=== PATIENT | male | born 1980 | race Caucasian/White ===

== ENCOUNTER 2022-08-30 17:40 | Inpatient (IN) | payer MEDICAID ==
[~2022-08-30] VITALS: Ht 175.3 cm; Wt 67.6 kg
[2022-08-30 22:02] LABS: BASOPHILS % (AUTO) 0.8 % (0.0-2.0); EOSINOPHILS % (AUTO) 4.5 % (1.0-6.0); HEMATOCRIT 40.5 % (41-53); HEMOGLOBIN 13.8 g/dL (13.5-17.5); LYMPHOCYTES # (AUTO) 2.9 K/uL (1.0-4.8); MEAN CORPUSCULAR HEMOGLOBIN 31.1 pg (26.0-34.0); MEAN CORPUSCULAR VOLUME 92 fL (80-100); MONOCYTES # (AUTO) 0.6 K/uL (0.1-1.0); MONOCYTES % (AUTO) 8.6 % (2.0-9.0); NEUTROPHILS % (AUTO) 44.1 % (40.0-70.0); PLATELET COUNT (AUTO) 255 K/uL (150-450); RED BLOOD CELL COUNT(AUTO) 4.43 MIL/uL (4.50-5.90); RED CELL DISTRIBUTION WIDTH 14.9 % (11.5-14.5)
[2022-08-30 22:11] LABS: ANION GAP 8 mmol/L (8-16); CALCIUM, TOTAL 8.9 mg/dL (8.8-10.5); CARBON DIOXIDE 31 mmol/L (22-29); CHLORIDE 100 mmol/L (98-107); CREATININE 0.84 mg/dL (0.60-1.30); GLOMERULAR FILTR. RATE CALC > 60 mL/min (>60); GLUCOSE,RANDOM 136 mg/dL (70-110); POTASSIUM 3.5 mmol/L (3.5-5.1); SODIUM SERUM 139 mmol/L (136-145); UREA NITROGEN, BLOOD 6 mg/dL (7-18)
[2022-08-30 22:18] LABS: ALANINE AMINOTRANSFERASE 29 U/L (12-78); ALKALINE PHOSPHATASE 88 U/L (46-116); ASPARTATE AMINOTRANSFERASE 21 U/L (15-37); BILIRUBIN,TOTAL 0.4 mg/dL (0.1-1.0); TOTAL PROTEIN, SERUM 6.1 g/dL (6.4-8.2)
[2022-08-30] MEDS ORDERED: LORazepam 2 MG TABLET PO ONE (22:45)
[2022-08-30] MEDS ORDERED: DiphenhydrAMINE HCL 50 MG CAPSULE PO ONE (22:45)
[2022-08-30] MEDS ORDERED: HALOPERIDOL 5 MG TABLET PO ONE (22:45)
[2022-08-30 22:56] LABS: COVID AG,FIA SOURCE NASAL SWAB
[2022-08-31] MEDS: ZOLPIDEM TARTRATE 10 MG TABLET PO PRN
[2022-08-31 00:01] VITALS: BP 134/84
[2022-08-31] MEDS ORDERED: INFLUENZA VIRUS VACCINE QVS 2022-23 (6MO+)/PF 60 MCG/0.5 ML SYRINGE IM. ONE (01:15)
[2022-08-31] MEDS ORDERED: NICOTINE 21 MG/24 HOUR PATCH TD PRN (06:30)
[2022-08-31 08:29] VITALS: BP 107/54
[2022-08-31 09:37] LABS: APPEARANCE,URINE HAZY (CLEAR); BILIRUBIN,URINE NEGATIVE (NEGATIVE); GLUCOSE, URINE (UA) NEGATIVE (NEGATIVE); KETONES,URINE TRACE mg/dL (NEGATIVE); LEUKOCYTE ESTERASE ,URINE NEGATIVE (NEGATIVE); NITRATE,URINE NEGATIVE (NEGATIVE); OCCULT BLOOD,URINE NEGATIVE (NEGATIVE); PH,URINE 5.5 (5.0-8.0); PROTEIN,URINE TRACE mg/dL (NEGATIVE); SPECIFIC GRAVITIY, URINE 1.032 (1.003-1.030)
[2022-08-31 09:42] LABS: AMPHET/METH SCREEN,URINE NEGATIVE (NEGATIVE); BARBITURATE SCREEN, URINE NEGATIVE (NEGATIVE); BENZODIAZEPINES SCREEN,URINE NEGATIVE (NEGATIVE); CANNABINOID SCREEN,URINE POSITIVE (NEGATIVE); COCAINE SCREEN,URINE NEGATIVE (NEGATIVE); METHADONE SCREEN, URINE NEGATIVE (NEGATIVE); OPIATE SCREEN,URINE NEGATIVE (NEGATIVE)
[2022-08-31 09:43] LABS: PHENCYCLIDINE SCREEN,URINE NEGATIVE (NEGATIVE)
[2022-08-31] MEDS ORDERED: ONDANSETRON HCL 4 MG TABLET PO PRN (09:45)
[2022-08-31] MEDS ORDERED: MAGNESIUM HYDROXIDE SUSPENSION 30 ML UDCUP PO PRN (09:45)
[2022-08-31] MEDS ORDERED: GuaiFENesin/D-METHORPHAN [SUGAR-FREE] 200-20MG/10 ML SYRUP UDCUP PO PRN (09:45)
[2022-08-31] MEDS ORDERED: DOCUSATE SODIUM 100 MG CAPSULE PO PRN (09:45)
[2022-08-31] MEDS ORDERED: MAG HYDROX/AL HYDROX/SIMETH ES 30 ML SUSPENSION UDCUP PO PRN (09:45)
[2022-08-31] MEDS ORDERED: LOPERAMIDE HCL 2 MG CAPSULE PO PRN (09:45)
[2022-08-31] MEDS ORDERED: ACETAMINOPHEN 325 MG TABLET PO PRN (09:45)
[2022-08-31] MEDS ORDERED: ALBUTEROL SULFATE HFA 90 MCG/PUFF 8 GM INHALER IH PRN (09:45)
[2022-08-31] MEDS ORDERED: PETROLATUM,WHITE 28 GM JELLY TP PRN (09:45)
[2022-08-31] MEDS ORDERED: CloNIDine HCL 0.1 MG TABLET PO PRN (09:45)
[2022-08-31] MEDS ORDERED: IBUPROFEN 400 MG TABLET PO PRN (09:45)
[2022-08-31] MEDS: HALOPERIDOL 5 MG TABLET PO PRN (13:37)
[2022-08-31] MEDS: LORazepam 2 MG TABLET PO PRN (13:37)
[2022-08-31 16:00] VITALS: BP 112/63
[2022-08-31] MEDS: QUEtiapine FUMARATE 200 MG TABLET PO SCH (20:20)
[2022-09-01 08:33] VITALS: BP 98/61
[2022-09-01] MEDS: HALOPERIDOL 5 MG TABLET PO PRN ×2 (11:15→17:53)
[2022-09-01] MEDS: LORazepam 2 MG TABLET PO PRN ×2 (11:15→17:54)
[2022-09-01 17:13] VITALS: BP 115/69
[2022-09-01] MEDS: NICOTINE 14 MG/24 HOUR PATCH TD PRN (18:09)
[2022-09-01] MEDS: QUEtiapine FUMARATE 200 MG TABLET PO SCH (20:19)
[2022-09-02 08:00] VITALS: BP 107/51
[2022-09-02] MEDS: HALOPERIDOL 5 MG TABLET PO PRN ×2 (12:06→17:18)
[2022-09-02] MEDS: LORazepam 2 MG TABLET PO PRN ×2 (12:06→17:18)
[2022-09-02 16:00] VITALS: BP 99/57
[2022-09-02] MEDS: QUEtiapine FUMARATE 200 MG TABLET PO SCH (20:29)
[2022-09-03] MEDS: NICOTINE 14 MG/24 HOUR PATCH TD PRN (11:21)
[2022-09-03] MEDS: LORazepam 2 MG TABLET PO PRN (14:01)
[2022-09-03] MEDS: HALOPERIDOL 5 MG TABLET PO PRN (14:01)
[2022-09-03 16:20] VITALS: BP 113/70
[2022-09-03] MEDS: QUEtiapine FUMARATE 200 MG TABLET PO SCH (20:21)
[2022-09-03] MEDS: ZOLPIDEM TARTRATE 10 MG TABLET PO PRN (20:22)
[2022-09-04 08:26] VITALS: BP 115/69
[2022-09-04] MEDS: HALOPERIDOL 5 MG TABLET PO PRN (12:30)
[2022-09-04] MEDS: LORazepam 2 MG TABLET PO PRN (12:30)
== END 2022-09-04 15:30 | disposition left against medical advice (07) | DRG 753 ==
LOC: EMS 17:40 → 3EC 23:54
PROVIDERS: ADMIT Psychiatry & Neurology Psychiatry; ATTEND Psychiatry & Neurology Psychiatry
DX: F31.4 Bipolar disorder, current episode depressed, severe, without psychotic features (principal); R45.851 Suicidal ideations; E88.09 Other disorders of plasma-protein metabolism, not elsewhere classified; Z20.822 Contact with and (suspected) exposure to COVID-19; F10.10 Alcohol abuse, uncomplicated; F15.90 Other stimulant use, unspecified, uncomplicated; R73.9 Hyperglycemia, unspecified; D53.9 Nutritional anemia, unspecified; F12.10 Cannabis abuse, uncomplicated; G47.00 Insomnia, unspecified; R45.850 Homicidal ideations; Z79.899 Other long term (current) drug therapy; Z59.00 Homelessness unspecified; Z87.891 Personal history of nicotine dependence
CPT/HCPCS: 80053; 80307; 81003; 85025; 99285; G0480